=== PATIENT | male | born 2000 | race Caucasian/White ===

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

== ENCOUNTER 2020-05-21 01:33 | Emergency (ER) | payer BC, SELFPAY ==
[2020-05-21 01:41] VITALS: BP 152/99; PULSE 100; RESP 16; TEMP 36.8; O2SAT 100; BMI 41.0
--- NOTE | 2020-05-21 02:06 | CT_ITS ---
PROCEDURE: CT ABDOMEN PELVIS W CON CLINICAL INDICATION: abd pain with n/v/d Abdominal pain with nausea vomiting and diarrhea COMPARISON: No exams were available for comparison TECHNIQUE: IV Contrast: 75ML Isovue 370 Oral Contrast None Axial images obtained with sagittal and coronal reformats. All CT scans at the facility use one or more dose reduction, viz: automated exposure control, ma/kV adjustment per patient size (including targeted exams where dose is matched to indication, i.e. head), or iterative reconstruction technique. FINDINGS: LOWER THORAX: No acute finding ABDOMEN & PELVIS: The liver, adrenal glands, pancreas, and kidneys have an unremarkable appearance. Borderline splenomegaly at 13 cm. No evidence of appendicitis intestinal obstruction or free air. Diverticula versus nondistended haustra noted in the sigmoid region. No evidence of diverticulitis. Nondistended fluid-filled loops of small and large bowel are present and could be seen with enterocolitis/diarrhea disease. There is degenerative disc disease in the lower thoracic spine. IMPRESSION: Nondistended fluid-filled loops of small and large bowel with a few air-fluid levels which may be seen with enterocolitis/diarrhea disease Dictated by: Jaskaran Moses MD 05/21/2020 05:17 Jaskaran Moses MD in [place] 05/21/2020 05:17
[2020-05-21 02:12] LABS: Microscopic, Urine URINE MICROSCOPIC (MICROSCOPIC)
[2020-05-21 02:15] LABS: Basophils % 0.1 % (0.1-2.0); Eosinophils # 0.1 K/mm3 (0.0-0.4); Eosinophils % 0.4 % (0.1-12.0); Hematocrit 45.4 % (42.0-52.0); Hemoglobin 15.5 g/dL (14.1-18.0); Lymphocytes # 0.2 K/mm3 (0.7-4.5); Mean Corpuscular HGB Conc 34.1 g/dL (31.8-35.4); Mean Corpuscular Hemoglobin 29.9 pg (27.0-31.2); Mean Corpuscular Volume 87.6 fl (80-94); Mean Platelet Volume 8.5 fl (7.4-10.4); Monocytes # 0.3 K/mm3 (0.1-1.0); Monocytes % 2.7 % (1.7-9.3); Neutrophils % 94.7 % (37.0-80.0); Platelet Count 237 K/mm3 (142-424); Red Blood Count 5.18 M/mm3 (4.60-6.20); Red Cell Distribution Width 12.4 % (11.5-17.5); White Blood Count 11.7 K/mm3 (4.8-10.8)
[2020-05-21 02:17] LABS: Chloride 110 mmol/L (98-107); Sodium 141 mmol/L (136-145)
[2020-05-21 02:18] LABS: MANUAL DIFFERENTIAL MANUAL DIFFERENTIAL (MANUAL DIFF); Potassium 4.4 mmoL/L (3.5-5.1)
[2020-05-21 02:20] LABS: Alanine Aminotransferase 23 U/L (12-78); Alkaline Phosphatase 73 U/L (38-126); Amylase 55 U/L (30-110); Anion Gap 14.4 mEq/L (5-15); Aspartate Amino Transferase 23 U/L (17-59); Bilirubin,Total 1.3 mg/dl (0.2-1.3); Blood Urea Nitrogen 11 mg/dl (9-20); Calcium 9.8 mg/dl (8.4-10.2); Carbon Dioxide 21 mmol/L (22.0-30.0); Creatinine Clearance Estimated 253 mL/min (50-200); Estimated Glomerular Filt Rate 122 ml/min (>60); GFR (African American) 148 ML/MIN (>60); Glucose 156 mg/dl (74-100)
[2020-05-21 02:21] LABS: Appearance,Urine CLOUDY (Clear); Bilirubin,Urine Negative (Negative); Blood, Urine Negative (Negative); Color,Urine YELLOW (Yellow); Glucose,Urine (UA) Negative (Negative); Ketones,Urine Negative (Negative); Leukocyte Esterase,Urine Negative (Negative); Nitrate,Urine POSITIVE (Negative); Protein,Urine Negative (Negative); Specific Gravity, Urine >= 1.030 (1.005-1.030); Urobilinogen,Urine 0.2 EU/dl (0.2)
[2020-05-21 02:21] LABS: Albumin Level 4.7 g/dl (3.5-5.0); Albumin/Globulin Ratio 1.4 (1.1-1.8); Globulin 3.3 g/dL (1.3-3.2); Lipase 16 U/L (23-300)
[2020-05-21 02:26] LABS: C-Reactive Protein 10.2 mg/L (0-4)
[2020-05-21 02:36] LABS: Amorphous Sediment,Urine 3+ /lpf; Bacteria,Urine 1+ /lpf
[2020-05-21 02:53] LABS: Lymphocytes % 1 % (10-50); Monocytes % 1 % (2-9); Neutrophils % 98 % (42-76); Platelet Estimate Normal; RBC Morphology Normal; Total Cells Counted 100
[2020-05-21 02:54] LABS: Erythrocyte Sedimentation Rate 7 mm/hr (0-15)
--- NOTE | 2020-05-21 03:28 | HMH.EDNVD ---
ED Disposition Clinical Impression: Gastroenteritis Disposition: Home, Self-Care Condition on Discharge: Good Instructions: DI for Diarrhea and Traveler's Diarrhea -- Adult Additional Instructions: fluids and see pcp for follow up Referrals: Lois Torres [Primary Care Provider] - - Critical Care Critical Care Time: No Attestation: On 05/21/20, the high probability of a clinically significant, sudden or life threatening deterioration of the following system(s) required my full and direct attention, intervention and personal management. The time I documented below is in addition to time spent performing reported procedures but includes the following listed in this critical care notation. Medical Decision Making - Medical Records Medical records reviewed: Yes: I reviewed the patient's medical records. - Yfn Inquiry Pt receiving controlled substance: No Vital Signs: 05/21/20 01:41 Temperature 98.2 F Temperature Source Oral Pulse Rate [Right] 100 H Respiratory Rate 16 Blood Pressure [Right Arm] 152/99 H Blood Pressure Mean [Right Arm] 116 Blood Pressure Source [Right Arm] Automatic Cuff Blood Pressure Position [Right Arm] Sitting 02 Sat by Pulse Oximetry 100 Oxygen Delivery Method Room Air - Lab Data Lab results reviewed: Yes: I reviewed the patient's lab results. Lab Results 05/21/20 01:50: Urine Color Yellow, Urine Appearance Cloudy, Urine pH 6.0, Ur Specific [place] >= 1.030, Urine Protein Negative, Urine Glucose (UA) Negative, Urine Ketones Negative, Urine Blood Negative, Urine Nitrate Positive, Urine Bilirubin Negative, Urine Urobilinogen 0.2, Ur Leukocyte Esterase Negative, Urine RBC None, Urine WBC None, Ur Squamous Epith Cells None, Amorphous Sediment 3+, Urine Bacteria 1+ 05/21/20 02:00: WBC 11.7 H, RBC 5.18, Hgb 15.5, Hct 45.4, MCV 87.6, MCH 29.9, MCHC 34.1, RDW 12.4, Plt Count 237, MPV 8.5, Neut % (Auto) 94.7 H, Lymph % (Auto) 2.0 L, [place] % (Auto) 2.7, Eos % (Auto) 0.4, Baso % (Auto) 0.1, Neut # (Auto) 11.0 H, Lymph # (Auto) 0.2 L, [place] # (Auto) 0.3, Eos # (Auto) 0.1, Baso # (Auto) 0.0, Total Counted 100, Neutrophils % (Manual) 98 H, Lymphocytes % (Manual) 1 L, Monocytes % (Manual) 1 L, Platelet Estimate Normal, RBC Morphology Normal, ESR 7 05/21/20 02:00: Sodium 141, Potassium 4.4, Chloride 110 H, Carbon Dioxide 21 L, Anion Gap 14.4, BUN 11, Creatinine 0.80, Estimated Creat Clear 253, Estimated GFR 122, Est GFR ( Amer) 148, Glucose 156 H, Calcium 9.8, Total Bilirubin 1.3, AST 23, ALT 23, Alkaline Phosphatase 73, C-Reactive Protein 10.2 H, Total Protein 8.0, Albumin 4.7, Globulin 3.3 H, Albumin/Globulin Ratio 1.4, Amylase 55, Lipase 16 L Result diagrams: 05/21/20 02:00 05/21/20 02:00 Orders (Tests/Meds): ED MEDICATIONS Generic Name Dose Route Start Last Admin Trade Name Freq PRN Reason Stop Dose Admin Sodium Chloride 1,000 mls @ 999 mls/hr 05/21/20 02:15 05/21/20 02:14 Sod Chlor 0.9% 1000ml Bag IV 05/21/20 03:15 999 mls/hr .Q1H1M CICI Administration Discontinued Medications Generic Name Dose Route Start Last Admin Trade Name Freq PRN Reason Stop Dose Admin Iopamidol 75 ml 05/21/20 03:25 05/21/20 03:26 Iopamidol-370 (76%);100ml Bottle IV 05/21/20 03:26 75 ml ONCE ONE Administration Ondansetron HCl 4 mg 05/21/20 02:06 05/21/20 02:14 Ondansetron 4mg/2ml Vial IV 05/21/20 02:07 4 mg ONCE ONE Administration Sodium Chloride 10 ml 05/21/20 03:25 05/21/20 03:26 Sodium Chloride 0.9% 10ml Syr (Rad Only) IV 05/21/20 03:26 10 ml ONCE ONE Administration ORDERS Category Date Time Status CT abdomen pelvis w con Stat Cat Scan 05/21/20 02:06 Taken - CT Data CT Scan: Abdomen, Pelvis Time Received: 04:[address] Reviewed: Yes: I have viewed the radiologist's interpretation Preliminary Findings: Abnormal (enteritis) Medical Decision Narrative: stable exam and labs with ct consistent with enteritis Nausea/Vomiting/Diarrhea HPI -
[2020-05-21 04:11] VITALS: BP 147/74; PULSE 82; RESP 16; TEMP 36.8; O2SAT 98
== END 2020-05-21 04:12 | disposition home or self-care (01) ==
PROVIDERS: Emergency Provider Emergency Medicine; PCP Nurse Practitioner Family
DX: K52.9 Noninfective gastroenteritis and colitis, unspecified (principal)
CPT/HCPCS: 74177; 80053; 81001; 82150; 83690; 85007; 85025; 85651; 86140; 96375; 99283; J2405; Q9967

== ENCOUNTER 2021-03-27 15:33 | Emergency (ER) | payer BC, SELFPAY ==
[2021-03-27 16:23] VITALS: BP 124/76; PULSE 71; RESP 18; TEMP 36.6; O2SAT 98; BMI 40.4
--- NOTE | 2021-03-27 16:32 | HMH.EDUTC ---
[facility] [place] Clinical Impression: Bronchitis URI (upper respiratory infection) Qualifiers: URI type: unspecified URI Qualified Code(s): J06.9 - Acute upper respiratory infection, unspecified Disposition: Home, Self-Care Condition on Discharge: Good Instructions: DI for Cough -- Adult, Sore Throat, Acute Bronchitis Additional Instructions: ? Start antibiotic today. Be sure to complete entire prescription even if feeling better ? Monitor temp. Tylenol every 4 hours as needed and / or ibuprofen every 6 hours as needed ( As long as your primary care physician has told you that it ok to take both. For fever/aches/pains ER if no less than 101 despite Tylenol or Motrin ? Humidifier/vaporizer or hot steamy shower *Tessalon Perles will not cause drowsiness but use at bedtime to help stop cough so that you may get some rest. *Start steroid today. Helps with inflammation therefore, cough and wheezing. Follow directions on the package. Reviewed side effects. Patient reports taking them before. Follow up IMMEDIATELY for new or worsening of symptoms OR no noticeable improvement over the next 48-72 hours. 911 immediately for any life threatening symptoms such as chest pain or difficulty breathing Prescriptions: Benzonatate [Benzonatate 100mg cap] 100 mg PO Q8HP PRN #15 cap PRN Reason: Cough Transmission Status: Pending to [facility] predniSONE [Prednisone 20mg Tab] 20 mg PO BID 5 Days #10 tab Transmission Status: Pending to [facility] Azithromycin [Z-Kaiden 250mg Tab] 250 mg PO DIRECTED #6 tab Transmission Status: Pending to [facility] Referrals: Lois Torres [Primary Care Provider] - As needed Forms: Work/School Release Time of Disposition: 17:02 Medical Decision Making - Yfn Inquiry Pt receiving controlled substance: No Yfn was queried for this patient: No Vital Signs: 03/27/21 16:23 Temperature 98 F Temperature Source Oral Pulse Rate [Left] 71 Respiratory Rate 18 Blood Pressure [Right Arm] 124/76 Blood Pressure Mean [Right Arm] 92 02 Sat by Pulse Oximetry 98 Orders (Tests/Meds): ORDERS Category Date Time Status Covid-19 Nasal PCR ([facility]) Routine Lab 03/27/21 16:16 Received [facility] [place] HPI - General Stated complaint: sore throat, cough congestion, back pain Time Seen by Provider: 03/27/21 16:32 Mode of Arrival: Ambulatory Source of Information: Patient Limitations: No Limitations Description of Symptoms (Recalled from Triage Doc. by RN): pt c/o lower back pain, LLQ pain, congestion and hoarseness x3 days. HEENT Symptoms (Recalled from RN notes): Yes Resp Symptoms (Recalled from RN notes): No Skin Symptoms (Recalled from RN notes): No MS Symptoms (Recalled from RN notes): No Functional Status (Recalled from RN notes): wnl - History of Present Illness Provider Complaint: Patient states that he has been having cough, sinus congestion and pain in left side/back area with cough and deep breath States that pain comes and goes but worse when he coughs States that he is not coughing anything up but today his throat was scratchy and he loss his voice - Related Data Previous Rx's Medication Instructions Recorded Ondansetron [Zofran 4mg ODT] 4 mg PO Q8HP PRN #20 tab.rapdis 05/27/18 Azithromycin [Z-Kaiden 250mg Tab] 250 mg PO DIRECTED #6 tab 03/27/21 Benzonatate [Benzonatate 100mg 100 mg PO Q8HP PRN #15 cap 03/27/21 cap] predniSONE [Prednisone 20mg 20 mg PO BID 5 Days #10 tab 03/27/21 Tab] Allergies Allergy/AdvReac Type Severity Reaction Status Date / Time amoxicillin Allergy Intermediate Rash Verified 04/15/20 14:49 shellfish derived Allergy Intermediate Hives Verified 04/15/20 14:49 shrimp Allergy Intermediate Hives Verified 04/15/20 14:49 - Worker's Comp Is this a Worker's Comp case?: No [facility] History - Hepatitis A Screen Drug use history?: No High risk sexual behaviors?: No History of sexually transmitted infection?: No Curr
[2021-03-27 17:17] VITALS: BP 124/76; PULSE 71; RESP 18; TEMP 36.6
== END 2021-03-27 17:18 | disposition home or self-care (01) ==
PROVIDERS: Emergency Provider Nurse Practitioner; PCP Nurse Practitioner Family
DX: J40 Bronchitis, not specified as acute or chronic (principal); J06.9 Acute upper respiratory infection, unspecified; M54.9 Dorsalgia, unspecified
CPT/HCPCS: 99202; C9803; G0463; U0003; U0005

== ENCOUNTER 2021-05-23 02:58 | Emergency (ER) | payer BC, SELFPAY ==
[2021-05-23 03:00] VITALS: BP 107/52; PULSE 60; RESP 18; TEMP 36.7; O2SAT 98; BMI 44.6
--- NOTE | 2021-05-23 03:25 | HMH.EDGENADL ---
ED Disposition Clinical Impression: Viral gastroenteritis Disposition: Home, Self-Care Condition on Discharge: Good Additional Instructions: Please take zofran as directed for nausea/vomiting. Drink plenty of fluids, gatorade/pedialyte to stay hydrated. Ok to take tylenol/motrin for you headache. Follow up with your PCP for any persisting symptoms, return to ED with new, concerning, or worsening symptoms. Prescriptions: Ondansetron [Zofran 4mg ODT] 4 mg SL TIDP PRN 3 Days #12 tab PRN Reason: Nausea And Vomiting Transmission Status: Pending to [facility] Referrals: Lois Torres [Primary Care Provider] - - Critical Care Critical Care Time: No Attestation: On 05/23/21, the high probability of a clinically significant, sudden or life threatening deterioration of the following system(s) required my full and direct attention, intervention and personal management. The time I documented below is in addition to time spent performing reported procedures but includes the following listed in this critical care notation. Medical Decision Making - Medical Records Medical records reviewed: Yes: I reviewed the patient's medical records. - Yfn Inquiry Pt receiving controlled substance: No Vital Signs: 05/23/21 03:00 Temperature 98.1 F Temperature Source Oral Pulse Rate [Right] 60 Respiratory Rate 18 Blood Pressure [Right Arm] 107/52 L Blood Pressure Mean [Right Arm] 70 Blood Pressure Source [Right Arm] Automatic Cuff 02 Sat by Pulse Oximetry 98 Oxygen Delivery Method Room Air - Lab Data Lab Results 05/23/21 03:30: WBC 8.8, RBC 5.12, Hgb 14.9, Hct 46.2, MCV 90.1, MCH 29.0, MCHC 32.2, RDW 13.1, Plt Count 339, MPV 8.3, Neut % (Auto) 78.6, Lymph % (Auto) 16.2, [place] % (Auto) 3.9, Eos % (Auto) 0.4, Baso % (Auto) 0.8, Neut # (Auto) 6.9, Lymph # (Auto) 1.4, [place] # (Auto) 0.3, Eos # (Auto) 0.0, Baso # (Auto) 0.1 05/23/21 03:30: Sodium 138, Potassium 3.6, Chloride 107, Carbon Dioxide 29, Anion Gap 5.6, BUN 9, Creatinine 0.70, Estimated Creat Clear 155, Estimated GFR 141, Est GFR ( Amer) 171, Glucose 107 H, Calcium 8.9, Total Bilirubin 0.7, AST 23, ALT 25, Alkaline Phosphatase 69, Total Protein 6.6, Albumin 3.8, Globulin 2.8, Albumin/Globulin Ratio 1.4, Lipase 36 Result diagrams: 05/23/21 03:30 05/23/21 03:30 Orders (Tests/Meds): ED MEDICATIONS Generic Name Dose Route Start Last Admin Trade Name Freq PRN Reason Stop Dose Admin Sodium Chloride 500 mls @ 999 mls/hr 05/23/21 03:30 05/23/21 03:39 Sod Chlor 0.9% 1000ml Bag IV 05/23/21 04:00 999 mls/hr .Q31M CICI Administration Ondansetron HCl 4 mg 05/23/21 03:17 05/23/21 03:40 Ondansetron 4mg/2ml Vial IV 06/22/21 03:16 4 mg Q6 PRN Administration Nausea And Vomiting Discontinued Medications Generic Name Dose Route Start Last Admin Trade Name Freq PRN Reason Stop Dose Admin Acetaminophen 1,000 mg 05/23/21 03:17 05/23/21 03:39 Acetaminophen 500mg Tab PO 05/23/21 03:18 1,000 mg ONCE ONE Administration Ketorolac Tromethamine 15 mg 05/23/21 03:17 05/23/21 03:41 Ketorolac 30mg/Ml Vial IV 05/23/21 03:18 15 mg ONCE ONE Administration Prochlorperazine Edisylate 10 mg 05/23/21 03:17 05/23/21 03:40 Prochlorperazine 10mg/2ml Vial IV 05/23/21 03:18 10 mg ONCE ONE Administration ORDERS Category Date Time Status Complete Blood Count Man Dif Stat Lab 05/23/21 03:30 Results Medical Decision Narrative: 20-year-old male with history of migraine headache presenting to the ED with nausea, vomiting, diarrhea, headache. Differential diagnoses include viral gastroenteritis, dehydration, migraine headache, tension headache, meningitis, viral upper respiratory infection. Given this work-up will include physical exam, CBC, CMP, lipase. Vital signs are stable, patient is afebrile. Gave 1 L IV fluids, 4 mg IV Zofran every 6 as needed, migraine cocktail including fluids, 10 mg IV Compazine, 15
[2021-05-23 04:01] LABS: MANUAL DIFFERENTIAL MANUAL DIFFERENTIAL (MANUAL DIFF)
[2021-05-23 04:18] LABS: Basophils # 0.1 K/mm3 (0-0.2); Basophils % 0.8 % (0.1-2.0); Eosinophils % 0.4 % (0.1-12.0); Hematocrit 46.2 % (42.0-52.0); Hemoglobin 14.9 g/dL (14.1-18.0); Lymphocytes # 1.4 K/mm3 (0.7-4.5); Lymphocytes % 16.2 % (10-50); Mean Corpuscular HGB Conc 32.2 g/dL (31.8-35.4); Mean Corpuscular Volume 90.1 fl (80-94); Mean Platelet Volume 8.3 fl (7.4-10.4); Monocytes # 0.3 K/mm3 (0.1-1.0); Monocytes % 3.9 % (1.7-9.3); Neutrophils # 6.9 K/mm3 (1.8-7.8); Neutrophils % 78.6 % (37.0-80.0); Platelet Count 339 K/mm3 (142-424); Red Blood Count 5.12 M/mm3 (4.60-6.20); Red Cell Distribution Width 13.1 % (11.5-17.5); White Blood Count 8.8 K/mm3 (4.8-10.8)
[2021-05-23 04:25] LABS: Alanine Aminotransferase 25 U/L (12-78); Albumin Level 3.8 g/dl (3.5-5.0); Albumin/Globulin Ratio 1.4 (1.1-1.8); Alkaline Phosphatase 69 U/L (38-126); Anion Gap 5.6 mEq/L (5-15); Aspartate Amino Transferase 23 U/L (17-59); Bilirubin,Total 0.7 mg/dl (0.2-1.3); Blood Urea Nitrogen 9 mg/dl (9-20); Calcium 8.9 mg/dl (8.4-10.2); Carbon Dioxide 29 mmol/L (22.0-30.0); Chloride 107 mmol/L (98-107); Creatinine Clearance Estimated 155 mL/min (50-200); Estimated Glomerular Filt Rate 141 ml/min (>60); GFR (African American) 171 ML/MIN (>60); Globulin 2.8 g/dL (1.3-3.2); Glucose 107 mg/dl (74-100); Lipase 36 U/L (23-300); Potassium 3.6 mmoL/L (3.5-5.1); Sodium 138 mmol/L (136-145); Total Protein,Serum 6.6 g/dl (6.3-8.2)
[2021-05-23 04:34] VITALS: BP 135/88; PULSE 85; RESP 20; TEMP 36.9; O2SAT 99
[2021-05-23 07:39] LABS: Lymphocytes % 17 % (10-50); Monocytes % 3 % (2-9); Neutrophils % 80 % (42-76); Total Cells Counted 100
[2021-05-23 07:40] LABS: Platelet Estimate Normal; RBC Morphology Normal
== END 2021-05-23 04:47 | disposition home or self-care (01) ==
PROVIDERS: Emergency Provider Emergency Medicine; PCP Nurse Practitioner Family
DX: K52.9 Noninfective gastroenteritis and colitis, unspecified (principal); E86.0 Dehydration
CPT/HCPCS: 80053; 83690; 85007; 85014; 85018; 85048; 85049; 96365; 96375; 99284; J2405

== ENCOUNTER 2021-08-18 07:55 | Emergency (ER) | payer BC, SELFPAY ==
[2021-08-18 07:56] VITALS: BP 139/84; PULSE 72; RESP 16; TEMP 36.8; O2SAT 98; BMI 43.8
--- NOTE | 2021-08-18 08:02 | PC.NURSE ---
SATURNINO COLEMAN at
--- NOTE | 2021-08-18 08:03 | HMH.EDABDPAI ---
ED Disposition Clinical Impression: Ureteral calculus, left Disposition: Home, Self-Care Condition on Discharge: Fair Instructions: Kidney Stones -- Adult, DI for Kidney Stones Additional Instructions: Drink plenty of fluids. You may take [id number] ibuprofen in addition to the prescription that you were given today. Do not drive or operate any heavy machinery today since you were given strong pain medication that could influence your ability to operate such machinery. Follow-up with your primary care doctor in about 3 to 4 days if you do not improve. You may want to consider following up with a urologist of your choice if you continue to have left flank pain after 3 to 4 days. Return immediately to the emergency department if you develop a fever or worsen in any way. Prescriptions: Hydrocodone/Acetaminophen [Hydrocodone-Acetamin 10-325 mg] 1 tab PO QID PRN #20 tab PRN Reason: Pain Transmission Status: Received by [id number] Referrals: Lois Torres [Primary Care Provider] - - Critical Care Critical Care Time: No Attestation: On 08/18/21, the high probability of a clinically significant, sudden or life threatening deterioration of the following system(s) required my full and direct attention, intervention and personal management. The time I documented below is in addition to time spent performing reported procedures but includes the following listed in this critical care notation. Medical Decision Making - Yfn Inquiry Pt receiving controlled substance: Yes Yfn was queried for this patient: Yes Risks and benefits of using a controlled substance: were discussed with pt by me Vital Signs: 08/18/21 07:56 Temperature 98.2 F Temperature Source Oral Pulse Rate [Radial] 72 Respiratory Rate 16 Blood Pressure [Right Arm] 139/84 Blood Pressure Mean [Right Arm] 102 Blood Pressure Position [Right Arm] Sitting 02 Sat by Pulse Oximetry 98 Oxygen Delivery Method Room Air - Lab Data Lab results reviewed: Yes: I reviewed the patient's lab results. Lab Results 08/18/21 08:00: Urine Color Yellow, Urine Appearance Clear, Urine pH 5.5, Ur Specific [place] >= 1.030, Urine Protein Trace, Urine Glucose (UA) Negative, Urine Ketones Negative, Urine Blood 3+, Urine Nitrate Negative, Urine Bilirubin Negative, Urine Urobilinogen 0.2, Ur Leukocyte Esterase Negative, Urine RBC 50-100, Urine WBC 5-10, Ur Squamous Epith Cells Occasional, Calcium Oxalate Crystal 1+, Urine Bacteria 4+ 08/18/21 08:15: WBC 10.4, RBC 5.01, Hgb 14.0 L, Hct 44.7, MCV 89.2, MCH 28.0, MCHC 31.4 L, RDW 13.1, Plt Count 292, MPV 8.2, Neut % (Auto) 70.8, Lymph % (Auto) 21.3, [place] % (Auto) 5.5, Eos % (Auto) 0.8, Baso % (Auto) 1.5, Neut # (Auto) 7.4, Lymph # (Auto) 2.2, [place] # (Auto) 0.6, Eos # (Auto) 0.1, Baso # (Auto) 0.2 08/18/21 08:15: Sodium 138, Potassium 3.3 L, Chloride 104, Carbon Dioxide 26, Anion Gap 11.3, BUN 14, Creatinine 0.80, Estimated Creat Clear 135, Estimated GFR 121, Est GFR ( Amer) 146, Glucose 146 H, Calcium 8.9, Total Bilirubin 0.9, AST 31, ALT 33, Alkaline Phosphatase 78, Total Protein 7.3, Albumin 4.0, Globulin 3.3 H, Albumin/Globulin Ratio 1.2, Lipase 82 Result diagrams: 08/18/21 08:15 08/18/21 08:15 Orders (Tests/Meds): ED MEDICATIONS Generic Name Dose Route Start Last Admin Trade Name Freq PRN Reason Stop Dose Admin Sodium Chloride 1,000 mls @ 999 mls/hr 08/18/21 08:30 08/18/21 08:24 Sod Chlor 0.9% 1000ml Bag IV 08/18/21 09:30 999 mls/hr .Q1H1M CICI Administration Discontinued Medications Generic Name Dose Route Start Last Admin Trade Name Freq PRN Reason Stop Dose Admin Hydromorphone HCl 1 mg 08/18/21 08:36 08/18/21 08:37 Hydromorphone 2mg/Ml Syringe IV 08/18/21 08:37 1 mg ONCE ONE Administration Ketorolac Tromethamine 30 mg 08/18/21 08:04 08/18/21 08:15 Ketorolac 30mg/Ml Vial IV 08/18/21 08:05 30 mg ONCE ONE Administration Ondansetron HCl 4 mg 08/18/21 08:15 0
--- NOTE | 2021-08-18 08:04 | CT_ITS ---
PROCEDURE INFORMATION: Exam: CT Abdomen And Pelvis Without Contrast Exam date and time: 08/18/2021 8:10 AM Age: 20 years old Clinical indication: Abdominal pain; Flank; Left; Additional info: Left flank pain, history of kidney stones TECHNIQUE: Imaging protocol: Computed tomography of the abdomen and pelvis without contrast. Radiation optimization: All CT scans at this facility use at least one of these dose optimization techniques: automated exposure control; mA and/or kV adjustment per patient size (includes targeted exams where dose is matched to clinical indication); or iterative reconstruction. COMPARISON: CT ABDOMEN PELVIS W CON 05/21/2020 2:32 AM FINDINGS: Detailed evaluation of the abdominal and pelvic viscera is somewhat limited in the absence of intravenous contrast. Diaphragm: Asymmetric elevation of the right hemidiaphragm. Liver: Fatty infiltration of the liver. Gallbladder and bile ducts: Unremarkable gallbladder. Pancreas: No pancreatic mass or ductal dilatation. Spleen: Mildly enlarged spleen measuring 12.2 cm in length. Adrenal glands: Unremarkable adrenals. Kidneys and ureters: Moderate left hydronephrosis in association with a 2 mm left ureteral calculus at the L5-S1 level. 1 mm nonobstructing left renal calculus. Stomach and bowel: Mild wall thickening in the nondistended colon. Mild dilatation of the distal ileum. Appendix: No acute appendicitis. Intraperitoneal space: No free fluid. Vasculature: Normal caliber of the abdominal aorta. Lymph nodes: Subcentimeter lymph nodes. Urinary bladder: Nondistended bladder limiting evaluation. Reproductive: Punctate prostate calcification. Bones/joints: Schmorl's nodes, marginal osteophytes, and chronic compression deformities in the thoracic spine. Soft tissues: Small umbilical hernia. IMPRESSION: 1. Moderate left hydronephrosis in association with a 2 mm left ureteral calculus at the L5-S1 level. 2. 1 mm nonobstructing left renal calculus. 3. Additional findings as described above.
[2021-08-18 08:08] LABS: Microscopic, Urine URINE MICROSCOPIC (MICROSCOPIC)
[2021-08-18 08:10] LABS: Appearance,Urine CLEAR (Clear); Bilirubin,Urine Negative (Negative); Blood, Urine 3+ (Negative); Color,Urine YELLOW (Yellow); Glucose,Urine (UA) Negative (Negative); Ketones,Urine Negative (Negative); Leukocyte Esterase,Urine Negative (Negative); Nitrate,Urine Negative (Negative); PH,Urine 5.5 (5.0-8.5); Protein,Urine TRACE (Negative); Specific Gravity, Urine >= 1.030 (1.005-1.030); Urobilinogen,Urine 0.2 EU/dl (0.2)
--- NOTE | 2021-08-18 08:13 | PC.NURSE ---
PT TO CT AT THIS TIME PER WC
--- NOTE | 2021-08-18 08:20 | PC.NURSE ---
pt given warm blankets and pillow. so at bedside
[2021-08-18 08:31] LABS: Alanine Aminotransferase 33 U/L (12-78); Albumin/Globulin Ratio 1.2 (1.1-1.8); Alkaline Phosphatase 78 U/L (38-126); Anion Gap 11.3 mEq/L (5-15); Aspartate Amino Transferase 31 U/L (17-59); Bilirubin,Total 0.9 mg/dl (0.2-1.3); Blood Urea Nitrogen 14 mg/dl (9-20); Calcium 8.9 mg/dl (8.4-10.2); Carbon Dioxide 26 mmol/L (22.0-30.0); Chloride 104 mmol/L (98-107); Creatinine Clearance Estimated 135 mL/min (50-200); Estimated Glomerular Filt Rate 121 ml/min (>60); GFR (African American) 146 ML/MIN (>60); Globulin 3.3 g/dL (1.3-3.2); Glucose 146 mg/dl (74-100); Lipase 82 U/L (23-300); Potassium 3.3 mmoL/L (3.5-5.1); Sodium 138 mmol/L (136-145); Total Protein,Serum 7.3 g/dl (6.3-8.2)
[2021-08-18 08:35] LABS: Bacteria,Urine 4+ /lpf; Calcium Oxalate Crystals,Urine 1+ /lpf; RBC,Urine 50-100 #/hpf (0-3); Squamous Epithelial Cell,Urine Occasional #/hpf (0-5)
[2021-08-18 08:45] LABS: Basophils # 0.2 K/mm3 (0-0.2); Basophils % 1.5 % (0.1-2.0); Eosinophils # 0.1 K/mm3 (0.0-0.4); Eosinophils % 0.8 % (0.1-12.0); Hematocrit 44.7 % (42.0-52.0); Lymphocytes # 2.2 K/mm3 (0.7-4.5); Lymphocytes % 21.3 % (10-50); Mean Corpuscular HGB Conc 31.4 g/dL (31.8-35.4); Mean Corpuscular Volume 89.2 fl (80-94); Mean Platelet Volume 8.2 fl (7.4-10.4); Monocytes # 0.6 K/mm3 (0.1-1.0); Monocytes % 5.5 % (1.7-9.3); Neutrophils # 7.4 K/mm3 (1.8-7.8); Neutrophils % 70.8 % (37.0-80.0); Platelet Count 292 K/mm3 (142-424); Red Blood Count 5.01 M/mm3 (4.60-6.20); Red Cell Distribution Width 13.1 % (11.5-17.5); White Blood Count 10.4 K/mm3 (4.8-10.8)
[2021-08-18 09:00] VITALS: BP 111/52; PULSE 50; RESP 16; O2SAT 97
--- NOTE | 2021-08-18 09:05 | PC.NURSE ---
review urine results and d/c medications with dr davis, no new d/c medications ordered
[2021-08-18 09:17] VITALS: BP 116/68; PULSE 78; RESP 16; TEMP 36.6; O2SAT 98
--- NOTE | 2021-08-18 09:19 | PC.NURSE ---
pt given urine strainer
== END 2021-08-18 09:19 | disposition home or self-care (01) ==
PROVIDERS: Emergency Provider Emergency Medicine; PCP Nurse Practitioner Family
DX: N20.1 Calculus of ureter (principal); Z88.1 Allergy status to other antibiotic agents
CPT/HCPCS: 74176; 80053; 81001; 83690; 85025; 87086; 96365; 96375; 96376; 99284; J2405

== ENCOUNTER 2022-03-28 18:45 | Emergency (ER) | payer BC, SELFPAY ==
[2022-03-28 18:47] VITALS: BP 137/89; PULSE 83; RESP 18; TEMP 36.7; O2SAT 98; BMI 45.1
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
[2022-03-28 19:10] VITALS: BP 143/92; PULSE 87; RESP 20; TEMP 36.8; O2SAT 95; BMI 45.1
--- NOTE | 2022-03-28 19:13 | XR_ITS ---
PROCEDURE INFORMATION: Exam: XR Left Ribs with PA Chest Exam date and time: 03/28/2022 7:11 PM Age: 21 years old Clinical indication: Other: Rib pain TECHNIQUE: Imaging protocol: Radiologic exam of the Left ribs with PA chest. Views: 3 views COMPARISON: CT ABDOMEN PELVIS WO CON 08/18/2021 8:10 AM FINDINGS: Lungs: Unremarkable. No consolidation. Pleural spaces: Unremarkable. No pleural effusion. No pneumothorax. Heart/Mediastinum: Unremarkable. No cardiomegaly. Bones/joints: There are mildly displaced fractures involving the lateral aspect of the left 8th and 9th ribs. No other acute fracture seen. IMPRESSION: Mildly displaced left 8th and 9th rib fractures
[2022-03-28 20:00] VITALS: BP 143/92; PULSE 87; RESP 20; TEMP 36.8; O2SAT 95
--- NOTE | 2022-03-28 20:00 | PC.NURSE ---
PATIENT GIVEN INCENTIVE SPIROMETER AND INSTRUCTED ON USE AT THIS TIME. PATIENT VERBALIZED UNDERSTANDING
== END 2022-03-28 20:05 | disposition home or self-care (01) ==
PROVIDERS: Emergency Provider Nurse Practitioner Family; PCP Nurse Practitioner Family
DX: J32.9 Chronic sinusitis, unspecified (principal); S22.32XA Fracture of one rib, left side, initial encounter for closed fracture
CPT/HCPCS: 71101; 96372; 99212; 99213; G0463

== ENCOUNTER → 2022-05-07 18:04 | Outpatient (CLI) | payer BC, SELFPAY ==
--- NOTE | 2022-05-07 18:19 | XR_ITS ---
PROCEDURE INFORMATION: Exam: XR Left Ribs with PA Chest Exam date and time: 05/07/2022 6:13 PM Age: 21 years old Clinical indication: Pain; Other: Ribs; Additional info: Closed fracture of multiple left ribs TECHNIQUE: Imaging protocol: Radiologic exam of the left ribs with PA chest. Views: 3 views COMPARISON: CR XR RIBS LT MIN 3V W CXR1V 03/28/2022 7:11 PM FINDINGS: Lungs: Unremarkable. No consolidation. Pleural spaces: Unremarkable. No pleural effusion. No pneumothorax. Heart/Mediastinum: Unremarkable. No cardiomegaly. Bones/joints: Stable position and alignment of the posterior left 8th and 9th rib fractures. Some interval healing changes have occurred. No new fracture identified. No other findings. IMPRESSION: Stable position and alignment of the healing left 8th and 9th rib fractures.
== END ==
PROVIDERS: PCP Nurse Practitioner Family; Visit Provider Nurse Practitioner Family
DX: S22.42XG Multiple fractures of ribs, left side, subsequent encounter for fracture with delayed healing (principal)
CPT/HCPCS: 71101

== ENCOUNTER 2024-11-06 15:05 | Outpatient (RCR) | payer BC, SELFPAY | END 2024-11-06 23:59 | disposition home or self-care (01) | LOC: PT 15:05 | PROVIDERS: Visit Provider Nurse Practitioner Family | DX: I89.0 Lymphedema, not elsewhere classified (principal) | CPT/HCPCS: 97162 ==

== ENCOUNTER 2024-11-20 21:35 | Emergency (ER) | payer BC, SELFPAY ==
[2024-11-20 21:38] VITALS: BP 140/80; PULSE 76; RESP 20; TEMP 36.7; O2SAT 100; BMI 469.8
[2024-11-20 21:42] VITALS: BP 141/86; PULSE 81; RESP 20; O2SAT 96
[2024-11-20 21:56] VITALS: PULSE 80; O2SAT 96
[2024-11-20 22:00] VITALS: PULSE 79; O2SAT 98
--- NOTE | 2024-11-20 22:02 | ED_ITS ---
Discharge Plan Disposition Patient Disposition: Home, Self-Care Prescriptions Prescriptions: No Action urea 40 % cream 1 applic topical BID 30 Days Qty: 28 3RF cyclobenzaprine 10 mg Tablet 10 mg PO BID PRN (Reason: Muscle Spasm) Qty: 20 0RF ibuprofen [IBU] 800 mg tablet 800 mg PO Q8HP PRN (Reason: Moderate Pain) Qty: 30 0RF benzonatate [benzonatate] 100 mg capsule 100 mg PO TIDP PRN (Reason: Cough) Qty: 30 0RF citalopram 20 MG tablet 20 mg PO DAILY Patient Comments: TAKE 1 TABLET (20 MG) BY ORAL ROUTE ONCE DAILY ondansetron 4 MG tablet,disintegrating 4 mg sublingual TIDP PRN (Reason: Nausea And Vomiting) 3 Days Qty: 12 0RF hydrocodone-acetaminophen 1 EACH tablet 1 tab PO QID PRN (Reason: Pain) Qty: 20 0RF Referrals Follow up/Referrals: Lois Torres [Primary Care Provider, Medical] - See instructions Activity Restrictions/Add. Instructions Additional Instructions/Restrictions: Follow-up with your primary care physician to discuss seeing a headache specialized neurologist for your recurrent migraines. Continue to hydrate well at home. If you develop any new or worsening symptoms, or if you become concerned for your health for any reason, return to the emergency department for evaluation. Clinical Impressions Clinical Impression: Headache, migraine Print Language Print Language: Korean Discharge ED Provider: Ian Agrawal Adult HPI General Chief complaint: Headache Stated complaint: Migraine with pain/vomitting Time Seen by Provider: 11/20/24 21:48 Mode of Arrival: Ambulatory Source of Information: Patient and Spouse Description of Symptoms (Recalled from ER Triage Doc. by RN): zandra presents to the ED for a migrain that started suddenly around 7pm. patient rates his current level of pain a 5/10 and has tried medicating with ibuprofen which was not successful. no vision changes noted. History of Present Illness HPI narrative: Joshua Pitts is a 23-year-old male with a history of anxiety and migraines who presents to the emergency department for complaints of a migraine headache. Patient states that at approximately 7:00 tonight, he was eating dinner and had a severe migraine. He states that he did feel it coming within it occurred faster than normal and is more severe than normal. He tried taking 1000 mg of Tylenol without relief. He reports photosensitivity. He states that this feels like a typical migraine just more severe. He states that he has present to the emergency department for and had received medications for his migraines. He denies any fevers. Related Data Home Medications ?Medication ?Instructions ?Recorded ?Confirmed citalopram 20 mg tablet 20 mg PO DAILY Anxiety 05/2303/18/23 Previous Rx's ?Medication ?Instructions ?Recorded ondansetron 4 mg disintegrating 4 mg sublingual TIDP P RN Nausea 05/23/21 tablet And Vomiting 3 days #12 tabs hydrocodone 10 mg-acetaminophen 1 tab PO QID PRN Pain #20 tabs 08/18/21 325 mg tablet benzonatate 100 mg capsule 100 mg PO TIDP PRN Cough #3 0 caps 03/28/22 cyclobenzaprine 10 mg tablet 10 mg PO BID PRN Muscle S pasm #20 03/28/22 tabs ibuprofen 800 mg tablet (IBU) 800 mg PO Q8HP PRN Moder ate Pain 03/28/22 #30 tabs urea 40 % topical cream 1 applic topical BID 30 days #28 03/19/23 grams Allergies Allergy/AdvReac Type Severity Reaction Status Date / Time amoxicillin Allergy Intermediate Rash Verified 03/18/23 14:56 shellfish derived Allergy Intermediate Hives Verified 03/18/23 14:56 shrimp Allergy Intermediate Hives Verified 03/18/23 14[facility] Disclaimer: The information contained in this section may have been updated after the patient was seen, as this information can be updated by other users. Medical History Anxiety Kidney stone Migraine Surgical History H/O wisdom tooth extraction History of tonsillectomy Social History Smoking Status: Never smoker alcohol intake: never current occupational status: student Travel in the last 8 weeks?: None caffeine: Yes Have you lived/traveled outside [place] in past 30 days?: No Contact w/someone who lives/traveled outside US past 30 days?: No Exposure to someone with infectious disease in past 14 days?: No Do you have a fever (greater than 100.4 F or 38 C)?: No Have you tested positive for COVID-19?: No Exposed to someone with COVID-19 in past 14 days?: No Do you have a sore throat?: No Do you have a cough?: No Do you have any weakness?: No Do you have any diarrhea?: No Are you experiencing any unusual bleeding?: No Do you have any muscle aches/pain?: No Do you have any abdominal pain?: No Are you experiencing loss of taste or smell?: No Other Medical History Have you received the Flu Vaccine for this season: No Have you received the Pneumonia Vaccine: No ROS Obtained: Yes Systems reviewed as appropriate & no additional complaints except as documented Physical Exam General General appearance: alert and in no apparent distress Head Head exam: atraumatic Eye Eye exam: Present normal appearance, PERRL and EOMI ENT ENT exam: Present normal external ear exam Neck Neck exam: Present full ROM Chest Chest inspection: Present symmetric chest wall rise Respiratory Respiratory exam: Present normal lung sounds bilaterally; Absent respiratory distress, wheezes or stridor Cardiovascular Cardiovascular exam: Present regular rate and normal rhythm Abdominal Exam Abdominal exam: Present soft; Absent tenderness or guarding exam: Present deferred Extremities Exam Extremities exam: Present normal inspection Back Exam Back exam: Present normal inspection Neurological Exam Neurological exam: Present alert and oriented X3 Psychiatric Psychiatric exam: Present normal affect Skin Skin exam: Present warm and dry Medical Decision Making Medical Records Screening: Per USPSTF and CDC recommendations, given the prevalence of disease in our region, it is our hospital?s policy to screen for HIV and viral Hepatitis for all patients aged 18 and over and those with ongoing risk factors. Yfn Inquiry Pt receiving controlled substance: No Vital Signs: 11/20/24 21:38 11/20/24 21:42 11/20/24 21:56 Temperature 98.0 F Temperature Source Temporal Artery Scan Pulse Rate 81 80 Pulse Rate [Right Radial] 76 Respiratory Rate 20 20 Blood Pressure 141/86 H Blood Pressure [Right Arm] 140/80 Blood Pressure Mean [Right Arm] 100 Blood Pressure Source Automatic Cuff Blood Pressure Source [Right Arm] Automatic Cuff Blood Pressure Position Sitting Blood Pressure Position [Right Arm] Sitting 02 Sat by Pulse Oximetry 100 96 96 Oxygen Delivery Method Room Air Room Air 11/20/24 22:00 11/20/24 23:02 Temperature 98.7 F Temperature Source Oral Pulse Rate 79 66 Pulse Rate [Right Radial] Respiratory Rate 18 Blood Pressure 118/67 Blood Pressure [Right Arm] Blood Pressure Mean [Right Arm] Blood Pressure Source Automatic Cuff Blood Pressure Source [Right Arm] Blood Pressure Position Sitting Blood Pressure Position [Right Arm] 02 Sat by Pulse Oximetry 98 Oxygen Delivery Method Room Air Orders (Tests/Meds): ED MEDICATIONS Discontinued Medications Generic Name Dose Route Start Last Admin Trade Name Teddy PRN Reason Stop Dose Admin Diphenhydramine HCl 25 mg 11/20/24 21:53 11/20/24 22:07 Diphenhydramine 50mg/Ml Vial IV 11/20/24 21:54 25 mg ONCE ONE Administration Lactated Ringer's 1,000 mls @ 999 mls/hr 11/20/24 21:53 11/20/24 22:08 Lactated Ringer's 1000 Ml Bag IV 11/20/24 22:53 999 mls/hr .Q1H1M ONE Administration Ketorolac Tromethamine 15 mg 11/20/24 21:53 11/20/24 22:08 Ketorolac 15mg/Ml Vial IV 11/20/24 21:54 15 mg ONCE ONE Administration Prochlorperazine Edisylate 10 mg 11/20/24 21:53 11/20/24 22:08 Prochlorperazine 10mg/2ml Vial IV 11/20/24 21:54 10 mg ONCE ONE Administration Medical Decision Narrative: Joshua Pitts is a 23-year-old male with a history of anxiety and migraines who presents to the emergency department for complaints of a migraine headache. Patient states that at approximately 7:00 tonight, he was eating dinner and had a severe migraine. He states that he did feel it coming within it occurred faster than normal and is more severe than normal. He tried taking 1000 mg of Tylenol without relief. He reports photosensitivity and had an episode of vomiting, which are both typical of his migraines. He states that this feels like a typical migraine just more severe. He states that he has present to the emergency department for and had received medications for his migraines. He denies any fevers. On arrival, patient is hemodynamically stable, in no acute d istress, breathing comfortably on room air with appropriate oxygen saturation. Physical exam, stated above, revealed a nontoxic-appearing male who is in no distress. He is sitting upright in the stretcher. He is alert, GCS 15. Pupils equal round reactive to light, extraocular movements intact. No focal neurological deficits. He is ranging his neck appropriately. Differential diagnosis includes, but is not limited to: Migraine headache, tension headache, cluster headache. There is low concern for subarachnoid hemorrhage given patient has a history of migraines and this feels similar to his previous migraines. CT imaging of the head without contrast was considered, however given his reassuring vital signs and the fact that headache appears similar to previous headaches and was not thunderclap in nature, it is felt that this is not indicated at this time and the radiation exposure outweighs the potential benefits. Lab work was also considered, however, labs would not change ED management. Will pursue symptomatic relief with migraine cocktail that includes 15 mg of IV Toradol, 1 L lactated ringer, 10 mg of IV Compazine and 25 mg of IV Benadryl. Patient was in agreement with this plan. On reassessment approximately 1 hour later, patient is sleeping comfortably. Upon waking, he states that his headache has completely resolved. He feels comfortable going home at this time. I did encourage patient to follow with his primary care physician. His significant other states that he is having approximately 1 severe migraine a month over the last 3 months, and his primary care doctor may need to get referred to a neurologist for further management of his headaches if these continue. Return precautions were given. All questions were answered. He demonstrated understanding and was in agreement with this plan. He was then discharged from the emergency department in stable condition. Critical Care Critical Care Time Critical Care Time: No
--- OUTSIDE RECORDS SUMMARY | 2024-11-20 22:03 | XMS_ITS | Clinical Summary ---
Author Organization [facility] Address [address] [place] [address] Care Team Providers Care Aerospace Engineer Name Role Phone Lala Glasgow ELECTRONICS TECHNOLOGY INSTRUCTOR Primary Care Provider [phone] Allergies Active Allergy Reactions Criticality Noted Date Comments Penicillins Swelling 05/22/2016 Medications oxyCODONE-aceta minophen (PERCOCET) 5-325 MG per tablet Take 1 tablet by mouth Every 4 (Four) Hours As Needed for Moderate Pain or Severe Pain for up to 15 doses. 15 tablet 05/26/2017 Active promethazine (PHENERGAN) 25 MG tablet Take 1 tablet by mouth Every 6 (Six) Hours As Needed. 10 tablet 09/01/2018 2:47 PM EDT 09/01/2018 Active oxyCODONE-aceta minophen (PERCOCET) 5-325 MG per tablet Take 1 tablet by mouth Every 6 (Six) Hours As Needed. 15 tablet 09/01/2018 2:47 PM EDT 09/01/2018 Active Social History Tobacco Use Types Packs/Day Years Used Date Smoking Tobacco: Never Smokeless Tobacco: Never Alcohol Use Standard Drinks/Week Comments No 0 (1 standard drink = 0.6 oz pur e alcohol) Abuse Screen Answer Date Recorded Unsafe at Home or Work/School Not on file Feels Threatened by Someone? Not on file 12/2022 Does Anyone Keep You from Co ntacting Others or Doint Things Outside the Home? Not on file 11/25/2022 Physical Sign of Abuse Present Not on file 1 Housing Stability Answer Date Recorded Current Living Arrangements Not on file 11/15 Potentially Unsafe Housing Conditions Not on daxa e 11/25/2022 Family and Community Support Answer Awais e Recorded Help with Day-to-Day Activities Not on file 11/25/2022 Lonely or Isolated Not on file 11/25/2022 Employment Answer Date Recorded Do you want help finding or keeping work or a linh b? Not on file 11/25/2022 Disabilities Answer Date Recorded Concentrating, Remembering, or Making Decisions Difficulty Not on file 11/25/2022 Doing Errands Independently Difficulty Not on fi le 11/25/2022 Education Answer Date Recorded Help with school or training? Not on file Preferred Language Not on file 11/25/2022 Sex and Gender Information Value Date Recorded Sex Assigned at Not on file Legal Sex Male 5:56 PM EDT Gender Identity Not on file Sexual Orientation Not on file Last Filed Vital Signs Vital Sign Reading Time Taken Comments Blood Pressure 132/70 05/26/2017 5:30 AM EDT Pulse 72 05/26/2017 3:13 AM EDT Temperature 36.3 C (97.4 F) 05/26/2017 5:35 AM EDT Respiratory Rate 16 05/26/2017 5:35 AM EDT Oxygen Saturation 98% 05/26/2017 3:13 AM EDT Inhaled Oxygen Concentration - - Weight 145 kg (320 lb) 05/26/2017 3:13 AM EDT Height 170.2 cm (5' 7 ) 05/26/2017 3:13 AM EDT Body Mass Index 50.12 05/26/2017 3:13 AM EDT Plan of Treatment Health Maintenance Due Date Last Done Comments ANNUAL PHYSICAL 05/22/2016 HEPATITIS C SCREENING 05/22/2016 TDAP/TD VACCINES (1 - Tdap) 2017 INFLUENZA VACCINE 09/15/2024 Pneumococcal Vaccine 0-49 Aged Out No longer eligible based on patient's age to complete this topic Insurance [facility] [id number] Care Teams Aerospace Engineer Relationship Specialty Start Date End Date Lala Glasgow, TIARA [address] [place] [id number] PCP - General Family Medicine 05/22/16
--- OUTSIDE RECORDS SUMMARY | 2024-11-20 22:03 | XMS_ITS | Continuity of Care Document ---
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 Available Not Available Not Available hydrocodone 5 mg-acetamin ophen 325 mg tablet TAKE 1 TABLET BY MOUTH EVERY 4 TO 6 HOURS NEEDED FOR PAIN 02/05 completed Not Available Not Available Not Available meloxicam 15 mg tablet Take 1 tab by mouth once daily for inflammat ion. 05/04 completed Not Available Not Available Not Available famotidine 40 mg tablet take 1 tablet (40 mg) by oral route 2 times per day for stomach 04/10 completed Not Available Not Available Not Available Medrol (Kaiden) 4 mg tablets in a dose pack Take 1 dose pk by oral route. 08/05 completed Not Available Not Available Not Available prednisone 20 mg tablet TAKE 1 TABLET BY MOUTH TWICE DAILY FOR 5 DAYS 11/05 completed Not Available Not Available Not Available rizatriptan 10 mg tablet TAKE ONE TABLET BY MOUTH DAILY NEEDED active Not Available Not Available No t Available desmopressi n 0.2 mg tablet Take one tablet at bedtime 01/10 completed Not Available Not Available Not Available prednisone 5 mg tablet 7pills po today and decrease by one q day 01/12 completed Not Available Not Available Not Available Diflucan 150 mg tablet take 1 tablet (150 mg) by oral route x1 day 03/08 completed Not Available Not Available Not Available dextrometho jaimehan-guaif enesin 10 mg-100 mg/5 mL oral syrup Take 1 teaspoon by mouth q4h prn for cough 01/20 completed Not Available Not Available Not Available hydrocodone 10 mg-acetamin ophen 325 mg tablet TAKE 1 TABLET BY MOUTH 4 TIMES DAILY NEEDED FOR PAIN 11/05 completed Not Available Not Available Not Available triamcinolo ne acetonide 0.1 % topical cream apply a thin layer to the affected area(s) by topical route 2 times per day 01/19 completed Not Available Not Available Not Available spironolact one 25 mg tablet TAKE ONE TABLET BY MOUTH EVERY MORNING for leg swelling 10/18 completed Not Available Not Available Not Available prednisone 10 mg tablets in a dose pack as directed 03/08 completed Not Available Not Available Not Available Zofran 4 mg tablet take 1 tablet (4 mg) by oral route 4 times per day prn n/v 11/05 completed Not Available Not Available Not Available citalopram 20 mg tablet TAKE 1 TABLET BY MOUTH ONCE DAILY 11/05 completed Not Available Not Available Not Available benzonatate 100 mg capsule TAKE ONE CAPSULE BY MOUTH THREE TIMES DAILY NEEDED FOR cough 10/28 completed Not Available Not Available Not Available doxycycline monohydrate 100 mg capsule TAKE ONE CAPSULE BY MOUTH TWICE DAILY with a MEAL FOR 10 DAYS, FOR IN AFFECTED EAR(S) infection 10/18 completed Not Available Not Available Not Available hydrocodone 7.5 mg-acetamin ophen 325 mg tablet 05/09 completed Not Available Not Available Not Available buspirone 10 mg tablet take 1 tablet (10 mg) by oral route 2 times per day for anxiety 11/05 completed Not Available Not Available Not Available hyoscyamine 0.125 mg sublingual tablet dissolve 2 tablets under the tongue 3 times a day as needed, for stomach. active Not Available Not Available No t Available omeprazole 20 mg capsule,del ayed release Take 1 capsule(s ) by mouth daily 08/07 completed Not Available Not Available Not Available diclofenac sodium 75 mg tablet,marco yed release Take 1 tablet(s) by mouth bid 04/23 completed Not Available Not Available Not Available ranitidine 150 mg capsule Take 1 capsule(s ) by mouth at bedtime 09/01 completed Not Available Not Available Not Available albuterol sulfate HFA 90 mcg/actuati on aerosol inhaler Inhale 2 puffs every 4 hours by inhalatio n route. 02/05 completed Not Available Not Available Not Available Vitamin D2 1,250 mcg (50,000 unit) capsule TAKE 1 CAPSULE BY MOUTH every WEEK FOR 90 DAYS active Not Available Not Available No t Available bromphenira mine-pseudo ephedrine-D M 2 mg-30 mg-10 mg/5 mL oral syrup TAKE 10 ML BY MOUTH EVERY 6 HOURS NEEDED - COUGH FOR 7 DAYS 11/05 completed Not Available Not Available Not Available ondansetron 4 mg disintegrat ing tablet Place 1 tablet every 6-8 hours by transling ual route as needed. 10/28 completed Not Available Not Available Not Available cefdinir 300 mg capsule 2 capsules po after the evening meal, once a day 08/16 completed Not Available Not Available Not Available fluticasone propionate 50 mcg/actuati on nasal spray,suspe nsion SPRAY ONCE in EACH NOSTRIL TWICE DAILY active Not Available Not Available No t Available loratadine 10 mg tablet Take 1 tablet(s) by mouth daily 03/13 completed Not Available Not Available Not Available spironolact one 50 mg tablet TAKE 1 TABLET BY MOUTH EVERY DAY FOR ON THE LEG SWELLING active Not Available Not Available No t Available hydroxyzine pamoate 25 mg capsule Take 1 capsule twice a day by oral route as needed, for anxiety. active Not Available Not Available No t Available neomycin-po lymyxin-hyd rocort 3.5 mg-10,000 unit/mL-1 % ear drops,susp 3 drops in the affected ear tid 05/28 completed Not Available Not Available Not Available bupropion HCl XL 150 mg 24 hr tablet, extended release TAKE ONE TABLET BY MOUTH ONCE DAILY 10/18 completed Not Available Not Available Not Available Wellbutrin XL 300 mg 24 hr tablet, extended release Take 1 tablet every day by oral route. 2024 active Not Available Not Available Not Avai lable Belviq 10 mg tablet Take 1 tablet(s) by mouth bid 09/07 completed Not Available Not Available Not Available Contrave 8 mg-90 mg tablet,exte nded release Take 1 qAM for 1 week then take 1 BID for 1 week, then take 2 qAM and 1 qPM for a week, then take 2 BID. 07/09 completed Not Available Not Available Not Available Vraylar 1.5 mg capsule TAKE 1 CAPSULE BY MOUTH EVERY DAY FOR mood active Not Available Not Available No t Available Wegovy 0.25 mg/0.5 mL subcutaneou s pen injector Inject by subcutane ous route for 28 days. active Not Available Not Available No t Available Flowflex COVID-19 Antigen Home Test kit 11/05 completed Not Available Not Available Not Available Vitals Date Recorded Body height Body mass index (BMI) Body weight Body temperature Heart rate Oxygen saturation Oxygen saturation in Arterial blood by Pulse oximetry Systolic And Diastolic Provider Name and Address Organization Details Last Updated DateTime 5 172.72 cm 49.3 kg/m2 105057. 93 g 97.8 [degF] 70 /min 96 % 96 % 106/67 mm[Hg] KARI LOO [employer] 5 08:42:23 Social History Question Answer Notes LastModified by Organizat ion Details LastModified Time Tobacco Smoking Status Never Smoker ATIYA anthony [employer]. 11/05/2021 16:20:38 Do You Have An Advance Directive? No Information n ot available 11/05/2021 Is Your Home Air Conditioned? Yes Information not available 11/05/2021 Are You Blind Or Do You Have Difficulty Seeing? No Information n ot available 03/19/2023 In The 14 Days Before Symptom Onset, Have You Had Close Contact With A Laboratory-confirm ed COVID-19 While That Case Was Ill? No Information n ot available 10/21/2022 In The 14 Days Before Symptom Onset, Have You Had Close Contact With A Person Who Is Under Investigation For COVID-19 While That Person Was Ill? No Information not available 10/21/2022 Have You Been To An Area Known To Be High Risk For COVID-19? No Information not available 10/21/2022 Are You Deaf Or Do You Have Serious Difficulty Hearing? No Information not available 03/19/2023 What Type Of Diet Are You Following? REGULAR Information n ot available 11/09/2022 What Is The Highest Grade Or Level Of School You Have Completed Or The Highest Degree You Have Received? AH12038-5 Information not available 11/05/2021 Do You Have A Medical Power Of Physiological Chemist? No Information not available 11/05/2021 What Was The Date Of Your Most Recent Tobacco Screening? 10/18/2024 Information not available 10/18/2024 Do You Use Your Seat Belt Or Car Seat Routinely? Yes Information not available 11/09/2022 Do You Have Smoke And Carbon Monoxide Detectors In Your Home? Yes Information not available 11/05/2021 Have You Recently Traveled Abroad? No Information not available 10/21/2022 Do You Have Difficulty Walking Or Climbing Stairs? No Information not available 03/19/2023 Are You Currently In School? No Information not available 11/05/2021 Do You Have Any Dietary Restrictions? No Information not available 11/09/2022 Sex: Male Functional Status Question Answer Note LastModified by Organizat ion Details LastModified Time Do you use any illicit or recreational drugs? No Information not available 11/05/2021 Do you or have you ever used any other forms of tobacco or nicotine? No Information not available 11/09/2022 What is your level of alcohol consumption? None Information not available 11/05/2021 Are you currently employed? Yes Information not available 11/05/2021 Do you have transportation difficulties? No Information not available 06/22/2022 Are you able to walk independently without assistance or assistive devices? YESWOREST Information not available 03/19/2023 Do you have difficulty doing errands alone? No Information not available 03/19/2023 Are you able to care for yourself independently? Yes Information not available 06/22/2022 Do you have difficulty dressing, bathing, grooming, or toileting? No Information not available 03/19/2023 Mental Status Question Answer Note LastModified by Organization D etails LastModified Time Do you have difficulty concentrating, remembering or making decisions? No Information no t available 03/19/2023 Family History Relationship Description Onset Age of this Age Resolved Age Notes LastModified by Organization Details LastModified Time Unspecified Relation Family history of Hypertension Relati ve: ''; [email or web address] Not available 10/21/2021 23:03:52 Unspecified Relation Family history of neurological disorder Relati ve: ''; [email or web address] Not available 10/21/2021 23:03:53 Unspecified Relation Family history of diabetes mellitus type 2 Relati ve: ''; [email or web address] Not available 10/21/2021 23:03:53 Unspecified Relation Family history of malignant neoplasm Relati ve: ''; [email or web address] Not available 10/21/2021 23:03:53 Unspecified Relation Family history of Respiratory disease Relati ve: ''; [email or web address] Not available 10/21/2021 23:03:54 Unspecified Relation Family history of malignant neoplasm Relati ve: ''; [email or web address] Not available 10/21/2021 23:03:54 Medical History Condition Response Allergies (Food, seasonal, environmental ) Y Kidney Stones Y Acid Reflux (GERD) Y Past Encounters Encounter ID Performer Location Encounter Start Date Encounter Closed Date Diagnosis/Indication Diagnosis SNOMED-CT Code Diagnosis ICD10 Code Diagnosis IMO Codes Diagnosis Note [id number] Lois Torres REPAIR SERVICER [address] [address] 10/18/2024 08:33:24 10/18/2024 10:02:17 Preventive procedure 611747140 Z00.00 [id number] The patient advised to continue a healthy diet and exercise regularly. He was also advised to:. [facility], renal function lipids. Diabetes m ellitus screening 444386485 Z13.1 76203 Hyperlipid emia screening 321244463 Z13.220 528384 Body mass index 40+ - severely obese 898442199 Z68.42 [id number] Start We[employer]. Diet and excercise plan explained. Use of My Fitness Pal for calorie counting explained. Goal 100 g protein with limit 20 g carbs. Push water. Use of med and risk vs benefit explained. Mild recur rent major depression 70828281 F33.0 Add vraylar. Continue celexa and wellbutrin . Lymphedema 491139690 I89 .0 34449 Increase aldactone to 50 mg daily. Irritable bowel syndrome with diarrhea 616252234 K58.0 Continue Levsin to 2 tabs QID prn IBS-D sx. Health Concerns Section Related Observation LastModified by Organization Detai ls LastModified Time None Recorded Concern Status LastModified by Organization Details LastModified Time None Recorded Payers Encounter Date Sequence Insurance Name Policy Number Policy Beard Covered Member ID Beard Member ID Guarantor Name 10/18/2024 1 [employer] [id number] Joshua Pitts [id number] [place] Notes Date Note Type Note Provider Name and Address Organization Details Recorded Time 5 text/html Annual WellnessReported by PatientSocial/Behavioral HistoryFor diet and nutrition, patient reportsdiet is high in salt,diet is high in fat, low in fiber, andhigh carbohydrate mealsbut reportsdiscussed vitamin and supplement use,discussed portion control, anddiscussed diet improvement. For fracture risk, patient reportshistory of fracturesbut reportsno recent explained fractureandno sudden unexplained fractures. For physical activity, patient reportsdoes not exercise on a regular basisanddeconditioned due to sedentary lifestylebut reportsdiscussed weightbearing activities. For additional lifestyle factors, patient reportsno tobacco useandno alcohol intake.Mental Status:For depression risk, patient reportsfeels sad, empty, or tearful,loss of interest in activities, andhistory of depressionbut reportsno thoughts of suicide.Functional AbilityFor hearing, patient reportsno loss of hearing. For vision, patient reportsno vision problems. Anxiety/DepressionReported by PatientHPIFor severity, patient reportsmood worseandinterference with activities of daily livingbut reportsdenies suicidal ideations,able to maintain relationships, andmultiple previous episodes. For context, patient reportsmajor life stressorsandfamily problems(significant anxiety in social settings). For associated symptoms, patient reportsdepression,anhedoni a,low self-esteem,social withdrawal, anddiarrhea. For duration, patient reportschronic. For onset/timing, patient reportsgradual. For modifying factors, patient reportssocial supportandselective serotonin reuptake inhibitor (ssri).ROS as noted in the HPI Joshua continues to struggle with Morbid obesity. He is interested in trying GLP1. I saw him in the spring for leg swelling and tried some aldactone which was modestly effective. I explained to him today this is lymphedema related to obesity. He was given a handout explaining lymphedema and will refer him to lymphedema clinic for consult. He does sit all day for work. Correlation between morbid obesity and lymphedema explained.His mood is not much improved, he remains chronically depressed with anhedonia. He is not interested in seeing again. Wellbutrin was increased at last visit and he saw no improvement. Will try Vraylar but he was cautioned to report weight gain with this med. Samples of vraylar were given and inst on use. Lois Torres APRN [address] [place] [address], [place], [address], [facility] [employer] 10/18/2024 09:43:18
--- OUTSIDE RECORDS SUMMARY | 2024-11-20 22:03 | XMS_ITS | Data Portability ---
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 96 % 96 % 132/77 mm[Hg] KARI LONNYNEAR [email or web address] 5 14:41:45 Date Recorded Body height Body mass index (BMI) Body weight Body temperature Heart rate Oxygen saturation Oxygen saturation in Arterial blood by Pulse oximetry Systolic And Diastolic Provider Name and Address Organization Details Last Updated DateTime 5 172.72 cm 50 kg/m2 692810. 89 g 98.5 [degF] 84 /min 94 % 94 % 112/66 mm[Hg] KARI LONNYNEAR [email or web address] 5 16:59:40 Date Recorded Body height Body mass index (BMI) Body weight Body temperature Heart rate Oxygen saturation Oxygen saturation in Arterial blood by Pulse oximetry Systolic And Diastolic Provider Name and Address Organization Details Last Updated DateTime 5 172.72 cm 49.3 kg/m2 900564. 93 g 97.8 [degF] 70 /min 96 % 96 % 106/67 mm[Hg] KARI [email or web address] 08:42:23 Social History Question Answer Notes LastModified by Organizat ion Details LastModified Time Tobacco Smoking Status Never Smoker [employer] 11/05/2021 16:20:38 Do You Have An Advance [...] Or The Highest Degree You Have Received? [id number] Information not available 11/05/2021 Do You Have A Medical Power Of Piano Assembler? No Information not available 11/05/2021 What Was [...] difficulty concentrating, remembering or making decisions? No [email or web address] Information no t available 03/19/2023 Family History [...] Response Allergies (Food, seasonal, environmental ) Y Acid Reflux (GERD) Y Kidney Stones Y Past Encounters Encounter ID Performer Location Encounter Start Date Encounter Closed Date Diagnosis/Indication Diagnosis SNOMED-CT Code Diagnosis ICD10 Code Diagnosis IMO Codes Diagnosis Note [id number] Lois Torres APRN [address] [address] 11/05/2021 15:56:37 11/05/2021 16:35:31 Generalized anxiety disorder 71050227 F41.1 Increase citalopram to 40 mg p.o. daily. Encouraged daily exercise. Patient again declined therapy today. [id number] [place] [address] 12/30/2021 17:15:08 12/30/2021 17:38:30 Acute sinusitis 01722984 J01.90 Lower resp iratory tract infection 04441168 J22 [id number] [place] [address] 05/06/2022 16:34:05 05/06/2022 17:03:45 Generalized anxiety disorder 03305787 F41.1 Continue Celexa. Closed fra cture of multiple left ribs 5670748882 4561883 S22.42XG TCDB, obtain f/up x ray to assess healing. [id number] Lois Torres [place] [address] 06/22/2022 17:03:15 06/22/2022 17:58:09 Acute bronchitis 27400678 J20.9 Patient presented with symptoms of upper respirator y infection. Advised to drink plenty of fluids, run a cool-mist humidifier in room at night, gargle salt water for sore throat, and get plenty of rest. Patient should avoid over-exert ion and reduce exposure to irritants such as smoke, cold, dry air, and dust. Treatment currently involves symptomati c relief. Patient may take acetaminop hen or ibuprofen as directed to reduce fever and body aches. Antihistam ine and decongesta nt usage was discussed and recommenda tions made. Patient understood these instructio ns and will follow up in the office in 10 days to 2 weeks if symptoms not improving. [id number] Lois Torres [place] [id number] 10/21/2022 16:47:04 11/10/2022 08:31:14 Irritable bowel syndrome 25375026 K58.9 Migraine 81649373 G43.90 9 The patient provides a headache history most suggestive of migraine headaches. Further diagnostic evaluation is not required. Treatment recommenda tions are outlined. Trial a different triptan for abortive therapy. Keep a ROSARIO diary, avoid triggers. [id number] [place] [address] 11/09/2022 16:59:54 11/09/2022 17:33:44 Irritable bowel syndrome 29997238 K58.9 Papers recommendi ng he continue his job at home were completed. Continue SSRI and Levsin. Migraine 62639581 G43.90 9 The patient provides a headache history most suggestive of migraine headaches. Further diagnostic evaluation is not required. Treatment recommenda tions are outlined. Triptan use prn for abortive therapy explained. Keep a ROSARIO diary, avoid triggers. [id number] [place] [address] 02/05/2023 16:33:13 02/05/2023 17:24:39 Foot callus 618132146 L84 Body mass index 40+ - severely obese 426440771 Z68.41 [id number] [place] [address] 0 03/02/2023 13:45:23 03/02/2023 14:33:02 Acute left otitis media 891768199 H66.92 Patient presents with signs/symp toms of otitis media. Will treat as below. Supportive care reviewed: humidifier use, raise HOB, saline nasal spray, encourage PO fluids. Recommende d acetaminop hen/ibupro fen PRN pain/fever Follow up as below. [id number] [place] [address] 03/19/2023 17:00:16 03/19/2023 18:00:51 Low back pain 363673018 M54.50 Alternate ice and heat, Ibu prn, increase activity - he works from home in a chair all day- consider PT if no improvemen t in 1-2 weeks. Urine ketone test = + 16 1305014 R82.4 A1c neg, encouraged to increase hydration. [id number] Lois Torres APRN [place] [address] 0 04/09/2023 16:08:37 04/09/2023 16:45:18 Low back pain 130411213 M54.50 Alternate ice and heat, lumbar support for his office chair, Ibu prn, increase activity - he works from home in a chair all day- start PT and flexeril, continue IBU prn. [id number] Lois Torres APRN [place] [address] 0 04/23/2023 13:28:18 04/23/2023 15:26:06 Pain of right hand 9214075724 34597 M79.641 Closed fra cture of neck of fifth metacarpal bone of right hand 1258237430 7518261 S62.336A RICE, elevate, catracho wrap, hand splint, and Ibu prn. Urgent referral to Ortho. [id number] Lois Torres [place] [address] 0 04/28/2023 16:55:02 04/28/2023 17:15:06 Hoarse 75498959 R49.0 [id number] Lois Torres [place] [address] 0 08/06/2023 16:50:04 08/06/2023 17:31:12 Acute upper respiratory infection 85920693 J06.9 Patient presented with symptoms of upper respirator y infection. Advised to drink plenty of fluids, run a cool-mist humidifier in room at night, gargle salt water for sore throat, and get plenty of rest. Patient should avoid over-exert ion and reduce exposure to irritants such as smoke, cold, dry air, and dust. Treatment currently involves symptomati c relief. Patient may take acetaminop hen or ibuprofen as directed to reduce fever and body aches. Antihistam ine and decongesta nt usage was discussed and recommenda tions made. Patient understood these instructio ns and will follow up in the office in 10 days to 2 weeks if symptoms not improving. [id number] Lois Torres [place] [address] 0 10/29/2023 16:46:04 10/29/2023 17:47:37 Irritable bowel syndrome with diarrhea 230046712 K58.0 Increase Levsin to 2 tabs QID prn IBS-D sx. Mild recur rent major depression 43980474 F33.0 Continue celexa and add Wellbutrin . Body mass index 40+ - severely obese 511545611 Z68.42 [id number] [place] [address] 0 02/01/2024 16:47:18 02/01/2024 17:41:47 Generalized anxiety disorder 26040649 F41.1 Continue Celexa and wellbutrin . Add hydroxyzin e. Body mass index 40+ - severely obese 243191887 Z68.42 [id number] [place] [address] 0 03/07/2024 10:55:15 03/07/2024 12:03:24 Acute right otitis media 316331614 H66.91 Patient presents with signs/symp toms of otitis media. Will treat as below. Supportive care reviewed: humidifier use, raise HOB, saline nasal spray, encourage PO fluids. Recommende d acetaminop hen/ibupro fen PRN pain/fever Follow up as below. Body mass index 40+ - severely obese 160506167 Z68.42 [id number] Lois Torres [place] [address] 0 05/09/2024 16:46:20 05/09/2024 17:38:27 Mild recurrent major depression 71078430 F33.0 Continue celexa and increase wellbutrin . Muscle spa sm of thoracic back 9873259042 54397 M62.830 LEFT thoracic trapezius. ALternate ice and heat and massage. Acute righ t otitis media 189494363 H66.91 Patient presents with signs/symp toms of otitis media. Will treat as below. Supportive care reviewed: humidifier use, raise HOB, saline nasal spray, encourage PO fluids. Recommende d acetaminop hen/ibupro fen PRN pain/fever Follow up as below. Body mass index 40+ - severely obese 336757684 Z68.42 [id number] [place] [address] 0 05/15/2024 14:34:28 05/15/2024 15:55:43 Rib pain 679863129 R07.81 Left posterior rib pain after coughing. Fracture of left rib 614 3308886 5608982 S22.32XA Rest, TCDB, pulmonary toilet, ICS use every hour, time to heal explained. Alarm sx such as sudden SOA, hemoptysis , and uncontroll ed pain proceed to ER Bilateral lower limb edema 143234266 R60.0 DASH diet, elevate legs. Compressio n socks on in AM and off in PM. [id number] Lois Torres [place] [address] 0 06/30/2024 16:39:31 07/03/2024 08:17:56 Acute suppurative otitis media without spontaneous rupture of ear drum 33531436 H66.004 [id number] Patient presents with signs/symp toms of otitis media. Will treat as below. Supportive care reviewed: humidifier use, raise HOB, saline nasal spray, encourage PO fluids. Recommende d acetaminop hen/ibupro fen PRN pain/fever Follow up as below. [id number] Lois Cruzzach [place] [address] 0 10/18/2024 08:33:24 10/18/2024 10:02:17 Preventive procedure 867505883 Z00.00 [id number] The patient advised to continue a healthy diet and exercise regularly. He was also advised to:. [facility], renal function lipids. Diabetes m ellitus screening 666936339 Z13.1 33178 Hyperlipid emia screening 348588902 Z13.220 709881 Body mass index 40+ - severely obese 496344133 Z68.42 9813387245 Start We[employer]. Diet and excercise plan explained. Use of My Fitness Pal for calorie counting explained. Goal 100 g protein with limit 20 g carbs. Push water. Use of med and risk vs benefit explained. Mild recur rent major depression 68248098 F33.0 Add vraylar. Continue celexa and wellbutrin . Lymphedema 576349129 I89 .0 17996 Increase aldactone to 50 mg daily. Irritable bowel syndrome with diarrhea 761593052 K58.0 Continue Levsin to 2 tabs QID prn IBS-D sx. Health Concerns Section Related Observation LastModified by Organization Detai ls LastModified Time None Recorded Concern Status LastModified by Organization Details LastModified Time None Recorded Advance Directives Directive N: Payers Insurance Date Sequence Insurance Name Policy Number Policy Beard Covered Member ID Beard Member ID Guarantor Name 06/30/2024 1 [place] [id number] Paco Pitts [id number] Joshua Maguiree 10/16/2024 1 [place] [id number] [facility] [id number] [facility] Notes Date Note Type Note Provider Name and Address Organization Details Recorded Time 5 text/html Ear Pain Brief HPIReported by PatientHPIFor quality, patient reportsaching painbut reportsno itching,no discharge from the ears, andno burning. For associated symptoms, patient reportssense of fullness/pressureandmuffled hearingbut reportsno vertigo,no jaw popping or clicking,no temporomandibular joint disease,no discharge from ear,no nasal congestion,no nasal discharge, andno hearing loss. For location, patient reportsright. For onset/timing, patient reportsnew onsetandgradual onset. For duration, patient reportssensation/episode variable length. For severity, patient reportsno fever,able to perform daily activities,getting worse, andmoderate pain. For context, patient reportsno recent uri,no recent trauma,no recent ear infection,no recent swimming,no immunocompromise,no dental problems,no recent airplane travel,no scuba diving,non-smoker, andseasonal allergic rhinitis. For alleviating factors, patient reportsantihistamine.ROS as noted in the HPI Lois Torres APRN [address] [place], [address], [employer] 03/07/2024 13:03:14 text/html Anxiety/DepressionReported by PatientHPIFor context, patient reportsmajor life stressorsandfamily problems(significant anxiety in social settings). For associated symptoms, patient reportsdepression,anhedonia ,low self-esteem, andsocial withdrawal. For severity, patient reportsdenies suicidal ideations,able to maintain relationships,symptoms improved, andmultiple previous episodes. For duration, patient reportschronic. For onset/timing, patient reportsgradual. For modifying factors, patient reportssocial supportandselective serotonin reuptake inhibitor (ssri). Ear Pain Brief HPIReported by PatientHPIFor quality, patient reportsaching painbut reportsno itching,no discharge from the ears, andno burning. For associated symptoms, patient reportssense of fullness/pressureandmuffled hearingbut reportsno vertigo,no jaw popping or clicking,no temporomandibular joint disease,no discharge from ear,no nasal congestion,no nasal discharge, andno hearing loss. For location, patient reportsright. For onset/timing, patient reportsnew onsetandgradual onset. For duration, patient reportssensation/episode variable length. For severity, patient reportsno fever,able to perform daily activities,getting worse, andmoderate pain. For context, patient reportsno recent uri,no recent trauma,no recent ear infection,no recent swimming,no immunocompromise,no dental problems,no recent airplane travel,no scuba diving,non-smoker, andseasonal allergic rhinitis. For alleviating factors, patient reportsantihistamine.ROS as noted in the HPI c/o intermittent tight spasms in left trap for 2 weeks. He does sit in a chair all day for work. Lois Torres APRN [address] [place], [address], [employer] 05/14/2024 17:41:03 5 text/html Musculoskeletal PainReported by PatientHPIFor quality, patient reportssharp. For severity, patient reportsinterferes with sleepandinterferes with work/school. For duration, patient reportspresent <1 month. For timing, patient reportsdate of onset: (05/14/24)andsudden. For context, patient reportsunusual activity (coughing). For aggravating factors, patient reportsmovement/positioning ,bending over, andtwisting. For associated symptoms, patient reportsno fever,no weak limbs,no tingling,no numbness of the legs/feet, andno incontinence. For location, (left posterior ribs).ROS as noted in the HPI C/o left posterior sharp discrete rib pain since coughing yesterday. He denies injury or trauma. He heard and felt a pop in his left side when cough. He denies SOA, further cough, fevers. 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 He says he has hx of a previous left rib fx. Lois Torres, OXIDATION ENGINEER [address] [place], [address], [facility] [employer] [place] 05/15/2024 16:17:17 5 text/html Ear Pain Brief HPIReported by PatientHPIFor quality, patient reportsaching painbut reportsno itching,no discharge from the ears, andno burning. For severity, patient reportsinterferes with daily activitiesandinterferes with ability to sleepbut reportsno fever,getting worse, andmoderate pain. For context, patient reportsrecent uribut reportsno recent trauma,no recent ear infection,no recent swimming,no immunocompromise,no dental problems,no recent airplane travel,no scuba diving,non-smoker, andseasonal allergic rhinitis. For associated symptoms, patient reportsnasal congestion,sense of fullness/pressure, andmuffled hearingbut reportsno vertigo,no jaw popping or clicking,no temporomandibular joint disease,no discharge from ear,no nasal discharge, andno hearing loss. For location, patient reportsbilateral. For onset/timing, patient reportsrecurrent episode,started 1weeks ago, andgradual onset. For duration, patient reportssensation/episode variable length. For alleviating factors, patient reportsnsaidsandantihistami ne. For aggravating factors, patient reportsallergies.ROS as noted in the HPI Lois Torres, OXIDATION ENGINEER [address] [place], [address], [facility] [employer] 06/30/2024 17:27:44 5 text/html Annual WellnessReported by PatientSocial/Behavioral HistoryFor [...] in social settings). For associated symptoms, patient reportsdepression,anhedonia ,low self-esteem,social withdrawal, anddiarrhea. For duration, patient reportschronic. [...] and inst on use. Lois Torres APRN [address] [place] [address], [place], [address], [facility] [employer] 10/18/2024 09:43:18
[2024-11-20] MEDS: KETOROLAC 15MG/ML VIAL 15 MG IV (22:08)
[2024-11-20] MEDS: PROCHLORPERAZINE 10MG/2ML VIAL 10 MG IV (22:08)
[2024-11-20] MEDS: LACTATED RINGERS 1000ML 1,000 ML 999 ML IV (22:08)
[2024-11-20 23:02] VITALS: BP 118/67; PULSE 66; RESP 18; TEMP 37.1; O2SAT 97
== END 2024-11-20 23:08 | disposition home or self-care (01) ==
PROVIDERS: Emergency Provider Student in an Organized Health Care Education/Training Program; PCP Nurse Practitioner Family
DX: G43.909 Migraine, unspecified, not intractable, without status migrainosus (principal); R11.2 Nausea with vomiting, unspecified
CPT/HCPCS: 96361; 96374; 96375; 99284; J0780; J1200; J1885; J7120

== ENCOUNTER 2024-12-11 11:00 | Outpatient (RCR) | payer BC, SELFPAY | END 2024-12-11 23:59 | disposition home or self-care (01) | LOC: PT 11:00 | PROVIDERS: Visit Provider Nurse Practitioner Family | DX: I89.0 Lymphedema, not elsewhere classified (principal) | CPT/HCPCS: 97140 ==